=== PATIENT | male | born 1955 | race Caucasian/White ===

== ENCOUNTER 2020-02-05 18:06 | Inpatient (IN) | payer MEDICARE, OTHER ==
[~2020-02-05] VITALS: Ht 185.4 cm; Wt 103.8 kg
--- NOTE | 2020-02-05 18:00 | NUR ---
Patient on the floor. Direct admit from [facility]. No orders yet except that the patient decided to go AMA from [facility]. Dr. Mancera has been paged for new orders, waiting for call back per Charge Nurse-Toney.
[~2020-02-05 18:06] MED LIST: LIDOcaine 2% (20 mg/ml) 5ml cardiac syringe ONE; MAGNESIUM SULFATE 4 MEQ/ML (5gm/10ml) injection ONE; albumin (human) 25% 100 ML IV solution IV ONE; aminocaproic acid 250 MG/1 ML inj. ONE; calcium chloride 100 MG/1 ML inj IV ONE; heparin 1,000 units/ml 10ml inj ONE; heparin 10,000 units/1 ML INJ ONE; methylPREDNISolone sod. succ. 500mg inj ONE; phenylephrine 10mg/ml inj. ONE; potassium Cl 2 mEq/ml inj IV ONE; sodium bicarbonate (8.4%) 1 mEq/ml syringe ONE
[2020-02-05 19:15] VITALS: BP 124/94
--- NOTE | 2020-02-05 19:32 | NUR ---
PAGER ID: [phone] MESSAGE: Candido Pacheco 64 M, Rm 309. Direct admit from [facility]. Arrived at 1800. No orders? Patient is alert, oriented x4. Needs H&P and orders. Herman ACCE [id number]
[2020-02-05] MEDS ORDERED: magnesium hydroxide 30ml (MOM) UD suspension PO PRN (19:55)
[2020-02-05] MEDS ORDERED: potassium Cl 20 mEq SR tablet PO PRN ×2 (19:55)
[2020-02-05] MEDS ORDERED: magnesium 2GM in 50ml NS 50 ML IV PRN (19:55)
[2020-02-05] MEDS ORDERED: mag hydrox/Alum hydrox/simeth 30ml oral suspension PO PRN (19:55)
[2020-02-05] MEDS ORDERED: magnesium Cl slow-release 64mg tablet PO PRN (19:55)
[2020-02-05] MEDS ORDERED: magnesium 4gm in 100ml NS 100 ML IV PRN (19:55)
[2020-02-05] MEDS ORDERED: potassium CL 10mEq/100ml bag 100 ML IV PRN ×2 (19:55)
[2020-02-05] MEDS ORDERED: HYDROcodone/acetaminophen 5mg/325mg tablet PO PRN (19:55)
[2020-02-05] MEDS ORDERED: ondansetron/PF 4mg/2ml inj IV PRN (19:55)
[2020-02-05] MEDS ORDERED: acetaminophen 325mg tablet PO PRN (19:55)
[2020-02-05] MEDS: docusate sod 100mg capsule PO SCH (20:00)
[2020-02-05] MEDS: K and/or MAG REPLACEMENT MC SCH (20:00)
--- NOTE | 2020-02-05 20:09 | NUR ---
Patient has no IV access and refused a New IV insertion at this point. He wants the new IV in the morning when we do the blood draws.
[2020-02-05 22:00] VITALS: BP 139/91
[2020-02-05] MEDS ORDERED: heparin 10,000 units/1 ML INJ IV ONE (22:05)
[2020-02-05 22:24] LABS: BASOPHILS % (AUTO) 0.1 % (0-1); EOSINOPHILS % (AUTO) 0 % (0-6); HEMATOCRIT 47.8 % (42.0-52.0); HEMOGLOBIN 15.8 g/dl (14.0-17.9); LYMPHOCYTES # (AUTO) 0.6 X10'3 (1.1-4.8); MEAN CORPUSCULAR HGB CONC 33.1 g/dL (33.0-36.5); MEAN CORPUSCULAR VOLUME 84.6 FL (78-98); MEAN PLATELET VOLUME 8.5 FL (7.4-10.4); MONOCYTES # (AUTO) 0.6 X10'3 (0-0.9); MONOCYTES % (AUTO) 4.4 % (2-12); NEUTROPHILS # (AUTO) 12.8 X10'3 (1.8-7.7); NEUTROPHILS % (AUTO) 91.5 % (42-75); PLATELET COUNT 238 X10'3 (140-440); RED BLOOD COUNT 5.65 X10'6 (4.70-6.10); RED CELL DISTRIBUTION WIDTH 14.8 % (11.5-14.5)
[2020-02-05 22:33] LABS: PARTIAL THROMBOPLASTIN TIME 28 SECONDS (22-32)
[2020-02-05] MEDS: heparin 25,000 UNIT/250ml bag 250 ML IV SCH (23:01)
[2020-02-06] MEDS ORDERED: METO50TA7 PO (00:19)
[2020-02-06] MEDS ORDERED: LISI10TA4 PO (00:37)
[2020-02-06] MEDS ORDERED: FURO40TA4 PO (00:37)
--- NOTE | 2020-02-06 00:42 | NUR ---
PAGER ID: [phone] MESSAGE: Candido Pacheco 64M Rm 309, direct admit from [facility] for NSTEMI w hx of HTN, COPD, requesting medication for Acid Reflux/GERD. 12 lead EKG confirm that pt. being A Fib. Elizabeth-PAUL [id number]
[2020-02-06] MEDS ORDERED: pantoprazole 40 MG vial IV ONE (00:45)
--- NOTE | 2020-02-06 01:56 | NUR ---
PAGER ID: [phone] MESSAGE: Candido Carlos 64M Rm 309, direct admit from [facility] for NSTEMI w hx of HTN, COPD. His 0hr trop was 0.05, and now- his 3hr troponin is 0.06. Patient is asymptomatic. Next trop at 0404. Herman [id number]
[2020-02-06 02:00] VITALS: BP 137/102
[2020-02-06 04:40] LABS: BASOPHILS % (AUTO) 0.1 % (0-1); EOSINOPHILS % (AUTO) 0 % (0-6); MEAN CORPUSCULAR HEMOGLOBIN 27.6 PG (27.0-31.0); MEAN CORPUSCULAR HGB CONC 32.6 g/dL (33.0-36.5); MEAN CORPUSCULAR VOLUME 84.7 FL (78-98); MEAN PLATELET VOLUME 8.9 FL (7.4-10.4); MONOCYTES # (AUTO) 0.9 X10'3 (0-0.9); MONOCYTES % (AUTO) 6.5 % (2-12); NEUTROPHILS # (AUTO) 11.8 X10'3 (1.8-7.7); NEUTROPHILS % (AUTO) 86.4 % (42-75); PLATELET COUNT 246 X10'3 (140-440); RED BLOOD COUNT 5.79 X10'6 (4.70-6.10); RED CELL DISTRIBUTION WIDTH 14.7 % (11.5-14.5); WHITE BLOOD COUNT 13.7 X10'3 (4.5-11.0)
[2020-02-06 04:55] LABS: ALANINE AMINOTRANSFERASE 29 U/L (12-78); ALBUMIN 3.3 G/DL (3.4-5.0); ALBUMIN/GLOBULIN RATIO 1.1 (1.1-1.5); ALKALINE PHOSPHATASE 41 IU/L (46-116); ANION GAP 6 (8-16); ASPARTATE AMINO TRANSFERASE 10 U/L (10-37); BLOOD UREA NITROGEN 25 MG/DL (7-18); BUN/CREATININE RATIO 22.7 (5.4-32.0); CALCIUM 9.9 MG/DL (8.5-10.1); CHLORIDE 106 MMOL/L (99-107); GLUCOSE 119 MG/DL (70-104); POTASSIUM 4.2 MMOL/L (3.5-5.1); SODIUM 138 MMOL/L (135-145); TOTAL CARBON DIOXIDE 26.1 MMOL/L (24-32); TOTAL PROTEIN 6.3 G/DL (6.4-8.2); eGFR 67 ML/MIN
[2020-02-06 04:58] LABS: MAGNESIUM 2.3 MG/DL (1.5-2.4)
[2020-02-06] MEDS: heparin 10,000 units/1 ML INJ IV PRN ×2 (05:13→17:37)
[2020-02-06] MEDS: heparin 25,000 UNIT/250ml bag 250 ML IV SCH (05:15)
[2020-02-06 06:00] VITALS: BP 133/88
--- NOTE | 2020-02-06 06:26 | NUR ---
Problems reprioritized. Patient report given to Sherman, questions answered & plan of care reviewed with .
--- NOTE | 2020-02-06 06:31 | NUR ---
Patient in room MED 309. I have received report frommark Johnson and had the opportunity to ask questions and assume patient care.
[2020-02-06] MEDS: K and/or MAG REPLACEMENT MC SCH ×2 (08:00→20:00)
[2020-02-06] MEDS: docusate sod 100mg capsule PO SCH ×2 (08:53→20:32)
[2020-02-06 10:00] VITALS: BP 129/96
[2020-02-06] MEDS: furosemide 40mg tablet PO SCH (10:45)
[2020-02-06] MEDS: lisinopril 10 MG tablet PO SCH (10:46)
[2020-02-06] MEDS: calcium carbonate 500mg chew tablet PO PRN (12:44)
[2020-02-06 14:00] VITALS: BP 122/88
[2020-02-06] MEDS ORDERED: vancomycin/NS 1 GM ADD-VANTAGE 250 ML IV ONE (16:30)
[2020-02-06] MEDS ORDERED: potassium Cl 20 mEq SR tablet PO PRN (16:30)
[2020-02-06] MEDS ORDERED: potassium CL 10mEq/100ml bag 100 ML IV PRN (16:30)
[2020-02-06] MEDS ORDERED: magnesium 2GM in 50ml NS 50 ML IV PRN (16:30)
[2020-02-06] MEDS ORDERED: magnesium 4gm in 100ml NS 100 ML IV PRN (16:30)
[2020-02-06] MEDS ORDERED: MESSAGE TO NURSING PO ONE ×3 (16:30→16:41)
[2020-02-06 17:41] LABS: ABG BASE EXCESS 2.5 mmol/L (-2.0-2.0); ABG HCO3 26.4 mmol/L (22.0-26.0); ABG OXYGEN SATURATION 96.1 % (94-97); ABG PCO2 (T) 38.6 mmHg (35.0-48.0); ABG PO2 (T) 78.2 mmHg (75.0-100.0); ALLEN'S TEST POSITIVE; FCOHb 0.3 % (0.0-3.9); FMetHb 0.2 % (0.0-1.5); FO2Hb 95.6 % (94-97); TOTAL HEMOGLOBIN 17.4 G/dl (14.0-18.0)
[2020-02-06 18:00] VITALS: BP 138/99
--- NOTE | 2020-02-06 18:25 | NUR ---
Problems reprioritized. Patient report given, questions answered & plan of care reviewed with mark gonzales.
--- NOTE | 2020-02-06 18:30 | NUR ---
Patient in room MED 309. I have received report from Sherman, and had the opportunity to ask questions and assume patient care.
[2020-02-06] MEDS ORDERED: metoprolol tartrate 12.5mg (1/2 tablet) PO SCH (20:00)
[2020-02-06] MEDS: metoprolol succinate 25mg (24-HOUR) SR. Tablet PO SCH (20:32)
[2020-02-06 22:00] VITALS: BP 135/99
--- NOTE | 2020-02-06 22:16 | NUR ---
The patient's Cardiac PTT at 2216 is 55. Therapeutic level. No change in heparin drip rate, which currently running at 16ml/hr. Will recheck his cardiac PTT at 0416. He asymptomatic, resting comfortably.
[2020-02-07] MEDS ORDERED: MESSAGE TO NURSING PO ONE ×2 (01:30→05:30)
[2020-02-07 02:00] VITALS: BP 128/96
[2020-02-07] MEDS ORDERED: MALTODEXTRIN/FRUCTOSE 0.68 KCAL/ML LIQUID 296ML BOTTLE PO ONE (03:30)
[2020-02-07 05:06] LABS: ALANINE AMINOTRANSFERASE 33 U/L (12-78); ALBUMIN 3.2 G/DL (3.4-5.0); ALBUMIN/GLOBULIN RATIO 1.1 (1.1-1.5); ALKALINE PHOSPHATASE 45 IU/L (46-116); ANION GAP 4 (8-16); ASPARTATE AMINO TRANSFERASE 14 U/L (10-37); BILIRUBIN,TOTAL 1.1 MG/DL (0.1-1.0); BLOOD UREA NITROGEN 22 MG/DL (7-18); CALCIUM 9.9 MG/DL (8.5-10.1); CHLORIDE 105 MMOL/L (99-107); CREATININE 1.05 MG/DL (0.60-1.10); GLUCOSE 112 MG/DL (70-104); MAGNESIUM 2.3 MG/DL (1.5-2.4); POTASSIUM 3.9 MMOL/L (3.5-5.1); SODIUM 138 MMOL/L (135-145); TOTAL CARBON DIOXIDE 28.7 MMOL/L (24-32); TOTAL PROTEIN 6.2 G/DL (6.4-8.2); eGFR 71 ML/MIN
[2020-02-07] MEDS ORDERED: ceFAZolin 1000mg inj ONE (05:17)
[2020-02-07] MEDS ORDERED: VANCOMYCIN 1,500MG inj. 1,500 MG in normal saline 500ml IV soln 500 ML IV ONE (05:30)
[2020-02-07] MEDS ORDERED: ringers solution, lacted 1,000 ML IV ONE (05:30)
[2020-02-07] MEDS: mupirocin 2% nasal ointment 1gm UD NS SCH ×2 (05:30→20:14)
[2020-02-07] MEDS ORDERED: gabapentin 400mg capsule PO ONE (05:30)
[2020-02-07] MEDS ORDERED: cefazolin/dext.iso 2gm/50ml 50 ML IV ONE (05:30)
[2020-02-07 05:35] LABS: BASOPHILS % (AUTO) 0.1 % (0-1); EOSINOPHILS # (AUTO) 0.1 X10'3 (0-0.9); EOSINOPHILS % (AUTO) 0.8 % (0-6); HEMATOCRIT 50.8 % (42.0-52.0); HEMOGLOBIN 16.8 g/dl (14.0-17.9); LYMPHOCYTES # (AUTO) 1.9 X10'3 (1.1-4.8); LYMPHOCYTES % (AUTO) 19.6 % (21-51); MEAN CORPUSCULAR HEMOGLOBIN 27.9 PG (27.0-31.0); MEAN CORPUSCULAR HGB CONC 33.1 g/dL (33.0-36.5); MEAN CORPUSCULAR VOLUME 84.5 FL (78-98); MEAN PLATELET VOLUME 8.6 FL (7.4-10.4); MONOCYTES # (AUTO) 1.1 X10'3 (0-0.9); MONOCYTES % (AUTO) 10.8 % (2-12); NEUTROPHILS # (AUTO) 6.7 X10'3 (1.8-7.7); NEUTROPHILS % (AUTO) 68.7 % (42-75); PLATELET COUNT 241 X10'3 (140-440); RED BLOOD COUNT 6.02 X10'6 (4.70-6.10); RED CELL DISTRIBUTION WIDTH 14.9 % (11.5-14.5); WHITE BLOOD COUNT 9.8 X10'3 (4.5-11.0)
[2020-02-07 06:00] VITALS: BP 135/94
[2020-02-07] MEDS ORDERED: LORazepam 2 mg/ml vial IV ONE (06:00)
[2020-02-07] MEDS ORDERED: famotidine 10mg tablet PO ONE (06:00)
--- NOTE | 2020-02-07 06:32 | NUR ---
Problems reprioritized. Patient report given to Deborah, questions answered & plan of care reviewed with .
--- NOTE | 2020-02-07 06:35 | NUR ---
The cardiac PTT at 0440 came to be 50. Therapeutic level. No rate change. The Heparin was stopped to prepare the patient for CABG. Saw the note that pharmacy has DC the Heparin Drip. Dayshift charge nurse-Rashida-PAUL aware of the changes and they will follow up with the pharmacy. patient is alert, oriented x4. Not on any distress.
[2020-02-07] MEDS: K and/or MAG REPLACEMENT MC SCH ×2 (08:00→20:00)
[2020-02-07 09:27] LABS: CLARITY,URINE CLEAR (Clear); COLOR,URINE YELLOW (Yellow); GLUCOSE, URINE NEGATIVE (Neg); KETONES,URINE NEGATIVE (Neg); LEUKOCYTE ESTERASE ,URINE NEGATIVE (Neg); NITRITES, URINE NEGATIVE (Neg); OCCULT BLOOD,URINE NEGATIVE (Neg); PH,URINE 6.5 (4.8-8.0); PROTEIN,URINE NEGATIVE (Neg)
[2020-02-07 09:28] LABS: UA COLLECTION TYPE CLN CATCH MIDSTREAM
[2020-02-07 10:00] VITALS: BP 142/101
[2020-02-07] MEDS: lisinopril 10 MG tablet PO SCH (10:14)
[2020-02-07] MEDS: docusate sod 100mg capsule PO SCH ×2 (10:14→20:14)
[2020-02-07] MEDS: furosemide 40mg tablet PO SCH (10:14)
[2020-02-07] MEDS ORDERED: iohexol 350MG/ML 100ml bottle IV ONE (10:26)
--- NOTE | 2020-02-07 13:43 | NUR ---
Nutrition consult per pt request as with food sensitivities. RD visited pt at bedside, reports he already discussed his sensitivities with kitchen staff including no pork, no beef, no potatoes. Prefers fish, turkey, sourdough bread. Addendum: 02/07/20 at [address] Amended: Links added.
[2020-02-07 14:00] VITALS: BP 146/94
[2020-02-07 18:00] VITALS: BP 128/95
[2020-02-07] MEDS: metoprolol succinate 25mg (24-HOUR) SR. Tablet PO SCH (20:14)
[2020-02-07 22:00] VITALS: BP 137/92
[2020-02-08] VITALS (18 sets, daily range): BP systolic 105–141; BP diastolic 68–107
[2020-02-08 02:37] LABS: BASOPHILS # (AUTO) 0.1 X10'3 (0-0.2); BASOPHILS % (AUTO) 0.7 % (0-1); EOSINOPHILS # (AUTO) 0.2 X10'3 (0-0.9); EOSINOPHILS % (AUTO) 2.3 % (0-6); HEMATOCRIT 51.4 % (42.0-52.0); HEMOGLOBIN 17.3 g/dl (14.0-17.9); MEAN CORPUSCULAR HEMOGLOBIN 28.3 PG (27.0-31.0); MEAN CORPUSCULAR HGB CONC 33.6 g/dL (33.0-36.5); MEAN CORPUSCULAR VOLUME 84.2 FL (78-98); MEAN PLATELET VOLUME 8.4 FL (7.4-10.4); MONOCYTES % (AUTO) 10.7 % (2-12); NEUTROPHILS # (AUTO) 6.5 X10'3 (1.8-7.7); NEUTROPHILS % (AUTO) 66.3 % (42-75); PLATELET COUNT 241 X10'3 (140-440); RED CELL DISTRIBUTION WIDTH 14.8 % (11.5-14.5); WHITE BLOOD COUNT 9.8 X10'3 (4.5-11.0)
[2020-02-08 02:53] LABS: ALANINE AMINOTRANSFERASE 38 U/L (12-78); ALBUMIN 3.3 G/DL (3.4-5.0); ALBUMIN/GLOBULIN RATIO 1.1 (1.1-1.5); ALKALINE PHOSPHATASE 48 IU/L (46-116); ANION GAP 4 (8-16); ASPARTATE AMINO TRANSFERASE 11 U/L (10-37); BLOOD UREA NITROGEN 20 MG/DL (7-18); BUN/CREATININE RATIO 21.3 (5.4-32.0); CALCIUM 9.7 MG/DL (8.5-10.1); CHLORIDE 105 MMOL/L (99-107); CREATININE 0.94 MG/DL (0.60-1.10); GLUCOSE 116 MG/DL (70-104); MAGNESIUM 2.3 MG/DL (1.5-2.4); POTASSIUM 4.1 MMOL/L (3.5-5.1); SODIUM 136 MMOL/L (135-145); TOTAL CARBON DIOXIDE 27.5 MMOL/L (24-32); TOTAL PROTEIN 6.4 G/DL (6.4-8.2); eGFR 81 ML/MIN
[2020-02-08] MEDS ORDERED: dextrose 50%-water 50ml dispensing syringe IV PRN ×2 (05:00→11:20)
[2020-02-08] MEDS ORDERED: insulin glargine (Lantus) pen - multi-dose SQ PRN ×2 (05:00→11:20)
[2020-02-08] MEDS ORDERED: gabapentin 400mg capsule PO ONE (05:30)
[2020-02-08] MEDS ORDERED: LORazepam 2 mg/ml vial IV ONE (05:30)
[2020-02-08] MEDS ORDERED: MALTODEXTRIN/FRUCTOSE 0.68 KCAL/ML LIQUID 296ML BOTTLE PO ONE (05:30)
[2020-02-08] MEDS ORDERED: famotidine 10mg tablet PO ONE (05:30)
[2020-02-08] MEDS ORDERED: cefazolin/dext.iso 2gm/50ml 50 ML IV ONE (05:30)
[2020-02-08] MEDS ORDERED: VANCOMYCIN 1,500MG inj. 1,500 MG in normal saline 500ml IV soln 500 ML IV ONE (05:30)
--- NOTE | 2020-02-08 06:27 | NUR ---
Problems reprioritized. Patient report given to GaroRN, questions answered & plan of care reviewed with .
[2020-02-08] MEDS ORDERED: sevoflurane 250ml liquid IH ONE (06:51)
[2020-02-08] MEDS ORDERED: amiodarone in dextrose, iso-osm 360mg/200ml bag IV ONE (06:51)
[2020-02-08] MEDS ORDERED: rocuronium 10mg/ml inj IV ONE ×3 (06:51→06:59)
[2020-02-08] MEDS ORDERED: aminocaproic acid 250 MG/1 ML inj. ONE (06:51)
[2020-02-08] MEDS ORDERED: protamine sulf. 10mg/ml inj. IV ONE (06:51)
[2020-02-08] MEDS ORDERED: SUFENTANIL CITRATE 50 MCG/ML 2ml ampule IV ONE (06:52)
[2020-02-08] MEDS ORDERED: MIDAZolam 5mg/ml 2ml vial ONE (06:53)
[2020-02-08] MEDS ORDERED: propofol inj 20 ML IV ONE (06:59)
--- NOTE | 2020-02-08 07:10 | NUR ---
Patient in room MED 309. I have received report from PAUL Johnson and had the opportunity to ask questions and assume patient care.
[2020-02-08] MEDS ORDERED: ceFAZolin 1000mg inj ONE (07:31)
[2020-02-08 07:41] LABS: ABG BASE EXCESS -0.4 mmol/L (-2.0-2.0); ABG HCO3 23.8 mmol/L (22.0-26.0); ABG OXYGEN SATURATION 95.5 % (94-97); ABG PCO2 37.9 mmHg (35.0-48.0); ABG PO2 76.5 mmHg (75.0-100.0); CL (ABG) 101 mmol/L (98-110); FCOHb 1.1 % (0.0-3.9); FMetHb 0.2 % (0.0-1.5); FO2Hb 94.3 % (94-97); GLUCOSE (ABG) 114 mg/dl (70-140); IONIZED CA (ABG) 1.28 mmol/L (1.10-1.43); K (ABG) 3.7 mmol/L (3.5-5.0); TOTAL HEMOGLOBIN 16.1 G/dl (14.0-18.0)
[2020-02-08 08:15] LABS: ABG BASE EXCESS 0.9 mmol/L (-2.0-2.0); ABG HCO3 25.4 mmol/L (22.0-26.0); ABG OXYGEN SATURATION 99.6 % (94-97); ABG PCO2 40.1 mmHg (35.0-48.0); ABG PO2 400.2 mmHg (75.0-100.0); CL (ABG) 99 mmol/L (98-110); FCOHb 0.7 % (0.0-3.9); FMetHb 0.1 % (0.0-1.5); FO2Hb 98.8 % (94-97); GLUCOSE (ABG) 82 mg/dl (70-140); IONIZED CA (ABG) 1.14 mmol/L (1.10-1.43); K (ABG) 3.3 mmol/L (3.5-5.0); TOTAL HEMOGLOBIN 13.3 G/dl (14.0-18.0)
[2020-02-08 08:40] LABS: ABG BASE EXCESS VENOUS -1.4 mmol/L; ABG PCO2 VENOUS 54.7 mmHg; CL (ABG) 100 mmol/L (98-110); FCOHb VENOUS 1.4 %; FHHb VENOUS 7.2 %; FO2Hb VENOUS 91.4 %; GLUCOSE (ABG) 83 mg/dl (70-140); IONIZED CA (ABG) 1.24 mmol/L (1.10-1.43); K (ABG) 4.5 mmol/L (3.5-5.0); TOTAL HEMOGLOBIN 14.5 G/dl (14.0-18.0)
[2020-02-08 09:30] LABS: ABG BASE EXCESS -0.8 mmol/L (-2.0-2.0); ABG HCO3 23.7 mmol/L (22.0-26.0); ABG OXYGEN SATURATION 99.1 % (94-97); ABG PO2 187.6 mmHg (75.0-100.0); CL (ABG) 103 mmol/L (98-110); FCOHb 0.9 % (0.0-3.9); FMetHb 0.3 % (0.0-1.5); FO2Hb 97.9 % (94-97); GLUCOSE (ABG) 107 mg/dl (70-140); IONIZED CA (ABG) 1.14 mmol/L (1.10-1.43); K (ABG) 4.4 mmol/L (3.5-5.0); TOTAL HEMOGLOBIN 13.4 G/dl (14.0-18.0)
[2020-02-08 09:45] LABS: ABG BASE EXCESS 1.7 mmol/L (-2.0-2.0); ABG HCO3 24.9 mmol/L (22.0-26.0); ABG OXYGEN SATURATION 98.1 % (94-97); ABG PCO2 34.3 mmHg (35.0-48.0); ABG PO2 111.6 mmHg (75.0-100.0); CL (ABG) 101 mmol/L (98-110); FCOHb 0.8 % (0.0-3.9); FMetHb 0.2 % (0.0-1.5); FO2Hb 97.1 % (94-97); GLUCOSE (ABG) 100 mg/dl (70-140); IONIZED CA (ABG) 1.41 mmol/L (1.10-1.43); K (ABG) 4.2 mmol/L (3.5-5.0); TOTAL HEMOGLOBIN 12.4 G/dl (14.0-18.0)
[2020-02-08 10:36] LABS: ABG BASE EXCESS VENOUS -2.3 mmol/L; ABG HCO3 VENOUS 22.1 mmol/L; ABG PCO2 VENOUS 36.6 mmHg; ABG PO2 VENOUS 35.3 mmHg; CL (ABG) 100 mmol/L (98-110); FCOHb VENOUS 1.6 %; FHHb VENOUS 30.2 %; FMetHb VENOUS 0.3 %; FO2Hb VENOUS 67.9 %; GLUCOSE (ABG) 115 mg/dl (70-140); IONIZED CA (ABG) 1.29 mmol/L (1.10-1.43); K (ABG) 4.4 mmol/L (3.5-5.0); TOTAL HEMOGLOBIN 13.1 G/dl (14.0-18.0)
[2020-02-08] MEDS ORDERED: niCARDipine-NS 40mg/200ml IVPB 200 ML IV PRN (11:16)
[2020-02-08] MEDS ORDERED: Insulin Reg/NS 100units/100mL 100 ML IV SCH (11:16)
[2020-02-08] MEDS ORDERED: DOPamine 400mg/D5W 250ml 250 ML IV PRN (11:16)
[2020-02-08] MEDS ORDERED: nitroGLYCERIN-Tridil 50MG/D5W 250 ML IV PRN (11:16)
[2020-02-08] MEDS ORDERED: sodium phosphate inj. 30 MMOL in dextrose 5%-water 250 ML IV PRN (11:20)
[2020-02-08] MEDS ORDERED: ondansetron/PF 4mg/2ml inj IV PRN (11:20)
[2020-02-08] MEDS ORDERED: pantoprazole 40 MG vial IV ONE (11:20)
[2020-02-08] MEDS ORDERED: bisacodyl 10mg suppository rectal RC PRN (11:20)
[2020-02-08] MEDS ORDERED: acetaminophen 325mg tablet PO PRN ×2 (11:20)
[2020-02-08] MEDS ORDERED: magnesium 4gm in 100ml NS 100 ML IV PRN (11:20)
[2020-02-08] MEDS ORDERED: normal saline 250ml IV soln 250 ML IV PRN (11:20)
[2020-02-08] MEDS ORDERED: metoclopramide 5 mg/ml inj IV PRN (11:20)
[2020-02-08] MEDS ORDERED: morphine 4 MG/ML inj SYRINge IV PRN (11:20)
[2020-02-08] MEDS ORDERED: sodium phosphate inj. 15 MMOL in dextrose 5%-water 250 ML IV PRN (11:20)
[2020-02-08] MEDS ORDERED: magnesium citrate 296ml oral solution PO PRN (11:20)
[2020-02-08] MEDS ORDERED: Neutra Phos packet PO PRN (11:20)
[2020-02-08] MEDS ORDERED: magnesium hydroxide 30ml (MOM) UD suspension PO PRN (11:20)
[2020-02-08] MEDS ORDERED: albumin (Human) 5% 250ml 250 ML IV PRN (11:20)
[2020-02-08] MEDS ORDERED: mineral oil 133ml enema RC PRN (11:20)
--- NOTE | 2020-02-08 11:30 | NUR ---
Received to room , accompanied by MDs and surgical crew. Placed on ventilator, to monitor technician, arterial line and PA line pressure monitored. Chest tubes to suction at 20 cm. Tong cath to gravity drainage. Dressings are dry and intact. See assessment record. All vasoactive drugs are infusing via central line.
[2020-02-08 11:40] LABS: ABG BASE EXCESS -3.6 mmol/L (-2.0-2.0); ABG HCO3 20.5 mmol/L (22.0-26.0); ABG OXYGEN SATURATION 95.5 % (94-97); ABG PCO2 (T) 35.1 mmHg (35.0-48.0); ABG PO2 (T) 78.9 mmHg (75.0-100.0); FCOHb 0.6 % (0.0-3.9); FMetHb 0.3 % (0.0-1.5); FO2Hb 94.6 % (94-97)
[2020-02-08 11:55] LABS: BASOPHILS % (AUTO) 0.1 % (0-1); EOSINOPHILS # (AUTO) 0.1 X10'3 (0-0.9); EOSINOPHILS % (AUTO) 0.4 % (0-6); HEMATOCRIT 49.1 % (42.0-52.0); HEMOGLOBIN 16.1 g/dl (14.0-17.9); LYMPHOCYTES # (AUTO) 0.8 X10'3 (1.1-4.8); LYMPHOCYTES % (AUTO) 6.7 % (21-51); MEAN CORPUSCULAR HEMOGLOBIN 27.7 PG (27.0-31.0); MEAN CORPUSCULAR HGB CONC 32.8 g/dL (33.0-36.5); MEAN CORPUSCULAR VOLUME 84.3 FL (78-98); MEAN PLATELET VOLUME 8.4 FL (7.4-10.4); MONOCYTES # (AUTO) 0.5 X10'3 (0-0.9); NEUTROPHILS # (AUTO) 11.1 X10'3 (1.8-7.7); NEUTROPHILS % (AUTO) 88.8 % (42-75); PLATELET COUNT 141 X10'3 (140-440); RED BLOOD COUNT 5.82 X10'6 (4.70-6.10); RED CELL DISTRIBUTION WIDTH 14.8 % (11.5-14.5); WHITE BLOOD COUNT 12.5 X10'3 (4.5-11.0)
[2020-02-08 12:09] LABS: PARTIAL THROMBOPLASTIN TIME 29 SECONDS (22-32)
[2020-02-08 12:10] LABS: ALANINE AMINOTRANSFERASE 35 U/L (12-78); ALBUMIN/GLOBULIN RATIO 1.6 (1.1-1.5); ALKALINE PHOSPHATASE 31 IU/L (46-116); ANION GAP 6 (8-16); ASPARTATE AMINO TRANSFERASE 172 U/L (10-37); BILIRUBIN,TOTAL 1.5 MG/DL (0.1-1.0); BLOOD UREA NITROGEN 19 MG/DL (7-18); BUN/CREATININE RATIO 19.6 (5.4-32.0); CALCIUM 8.4 MG/DL (8.5-10.1); CHLORIDE 109 MMOL/L (99-107); CREATININE 0.97 MG/DL (0.60-1.10); GLUCOSE 163 MG/DL (70-104); MAGNESIUM 3.9 MG/DL (1.5-2.4); PHOSPHORUS 2.5 MG/DL (2.3-4.5); SODIUM 140 MMOL/L (135-145); TOTAL CARBON DIOXIDE 25.2 MMOL/L (24-32); TOTAL PROTEIN 4.9 G/DL (6.4-8.2); eGFR 78 ML/MIN
[2020-02-08 12:16] LABS: ACTIVATED CLOTTING TIME 127 SEC (101-148)
[2020-02-08] MEDS: Insulin Reg/NS 100units/100mL 100 ML IV SCH (12:17)
[2020-02-08] MEDS: gabapentin 300mg capsule PO SCH ×2 (12:45→20:33)
[2020-02-08] MEDS: sodium chloride 0.45% 1,000 ML IV SCH (12:48)
[2020-02-08] MEDS: potassium Cl 20mEq/100mL bag 100 ML IV PRN ×2 (12:51→14:04)
--- NOTE | 2020-02-08 13:28 | NUR ---
Nutrition consult: Pt s/p MVR and MAZE procedure today. Pt would benefit from nutrition therapy education s/p cardiac surgery once stable. Will continue to follow. Addendum: 02/08/20 at [address] Amended: Links added.
[2020-02-08] MEDS: morphine 4 MG/ML inj SYRINge IV PRN (15:02)
--- NOTE | 2020-02-08 15:30 | NUR ---
Art line came out. notified
[2020-02-08] MEDS: amiodarone/D5 360MG/200ML BAG 200 ML IV SCH ×2 (15:41→21:29)
[2020-02-08 16:10] LABS: ABG BASE EXCESS -4.2 mmol/L (-2.0-2.0); ABG HCO3 20.4 mmol/L (22.0-26.0); ABG PCO2 (T) 36.4 mmHg (35.0-48.0); ABG PO2 (T) 90.2 mmHg (75.0-100.0); ALLEN'S TEST POSITIVE; FCOHb 0.3 % (0.0-3.9); FMetHb 0.3 % (0.0-1.5); FO2Hb 95.9 % (94-97); PEEP 5 cm H2O; TOTAL HEMOGLOBIN 16.5 G/dl (14.0-18.0)
[2020-02-08 16:11] LABS: ABG OXYGEN SATURATION 96.5 % (94-97)
--- NOTE | 2020-02-08 16:20 | NUR ---
Patient extubated to 2L NC. tolerated well. Snoring and seems to have sleep apnea; sats will dip and pop right back up after a deep breath
[2020-02-08] MEDS: ceFAZolin 1GM/D5W- ADD-VANTAGE 50 ML IV SCH (17:02)
[2020-02-08 17:23] LABS: BASOPHILS % (AUTO) 0.3 % (0-1); EOSINOPHILS % (AUTO) 0 % (0-6); HEMATOCRIT 47.9 % (42.0-52.0); HEMOGLOBIN 15.6 g/dl (14.0-17.9); LYMPHOCYTES # (AUTO) 0.5 X10'3 (1.1-4.8); LYMPHOCYTES % (AUTO) 3.5 % (21-51); MEAN CORPUSCULAR HEMOGLOBIN 27.7 PG (27.0-31.0); MEAN CORPUSCULAR HGB CONC 32.6 g/dL (33.0-36.5); MEAN CORPUSCULAR VOLUME 84.9 FL (78-98); MEAN PLATELET VOLUME 8.3 FL (7.4-10.4); MONOCYTES # (AUTO) 0.3 X10'3 (0-0.9); MONOCYTES % (AUTO) 2.4 % (2-12); NEUTROPHILS # (AUTO) 12.9 X10'3 (1.8-7.7); NEUTROPHILS % (AUTO) 93.8 % (42-75); PLATELET COUNT 159 X10'3 (140-440); RED BLOOD COUNT 5.64 X10'6 (4.70-6.10); RED CELL DISTRIBUTION WIDTH 14.8 % (11.5-14.5); WHITE BLOOD COUNT 13.8 X10'3 (4.5-11.0)
[2020-02-08 17:37] LABS: ALBUMIN 3.5 G/DL (3.4-5.0); ANION GAP 3 (8-16); BLOOD UREA NITROGEN 20 MG/DL (7-18); BUN/CREATININE RATIO 16.7 (5.4-32.0); CALCIUM 8.6 MG/DL (8.5-10.1); CHLORIDE 110 MMOL/L (99-107); GLUCOSE 154 MG/DL (70-104); MAGNESIUM 3.2 MG/DL (1.5-2.4); PHOSPHORUS 4.1 MG/DL (2.3-4.5); SODIUM 140 MMOL/L (135-145); TOTAL CARBON DIOXIDE 26.8 MMOL/L (24-32); eGFR 61 ML/MIN
[2020-02-08] MEDS: sennosides/docusate sodium tablet PO SCH (20:32)
[2020-02-08] MEDS: mupirocin 2% nasal ointment 1gm UD NS SCH (20:32)
[2020-02-08] MEDS: vancomycin/NS 1 GM ADD-VANTAGE 250 ML IV SCH (20:33)
[2020-02-08] MEDS: HYDROcodone/acetaminophen 10/325mg tab PO PRN (20:48)
[2020-02-09] VITALS (23 sets, daily range): BP systolic 108–169; BP diastolic 67–100
[2020-02-09] MEDS: ceFAZolin 1GM/D5W- ADD-VANTAGE 50 ML IV SCH ×3 (00:16→17:37)
[2020-02-09 02:20] LABS: BASOPHILS # (AUTO) 0.1 X10'3 (0-0.2); BASOPHILS % (AUTO) 0.4 % (0-1); EOSINOPHILS % (AUTO) 0 % (0-6); HEMOGLOBIN 14.7 g/dl (14.0-17.9); LYMPHOCYTES # (AUTO) 0.6 X10'3 (1.1-4.8); MEAN CORPUSCULAR HEMOGLOBIN 27.4 PG (27.0-31.0); MEAN CORPUSCULAR HGB CONC 32.6 g/dL (33.0-36.5); MEAN CORPUSCULAR VOLUME 84.2 FL (78-98); MEAN PLATELET VOLUME 8.7 FL (7.4-10.4); MONOCYTES # (AUTO) 0.6 X10'3 (0-0.9); MONOCYTES % (AUTO) 4.3 % (2-12); NEUTROPHILS # (AUTO) 12.8 X10'3 (1.8-7.7); NEUTROPHILS % (AUTO) 91.3 % (42-75); PLATELET COUNT 138 X10'3 (140-440); RED BLOOD COUNT 5.35 X10'6 (4.70-6.10); RED CELL DISTRIBUTION WIDTH 14.8 % (11.5-14.5)
[2020-02-09] MEDS: amiodarone/D5 360MG/200ML BAG 200 ML IV SCH (02:26)
[2020-02-09 02:27] LABS: PARTIAL THROMBOPLASTIN TIME 25 SECONDS (22-32)
[2020-02-09 02:30] LABS: ALANINE AMINOTRANSFERASE 36 U/L (12-78); ALBUMIN 3.2 G/DL (3.4-5.0); ALBUMIN/GLOBULIN RATIO 1.5 (1.1-1.5); ALKALINE PHOSPHATASE 29 IU/L (46-116); ANION GAP 6 (8-16); ASPARTATE AMINO TRANSFERASE 151 U/L (10-37); BILIRUBIN,TOTAL 0.9 MG/DL (0.1-1.0); BLOOD UREA NITROGEN 21 MG/DL (7-18); BUN/CREATININE RATIO 19.3 (5.4-32.0); CALCIUM 8.8 MG/DL (8.5-10.1); CHLORIDE 106 MMOL/L (99-107); CREATININE 1.09 MG/DL (0.60-1.10); GLUCOSE 120 MG/DL (70-104); MAGNESIUM 2.8 MG/DL (1.5-2.4); PHOSPHORUS 4.2 MG/DL (2.3-4.5); POTASSIUM 4.7 MMOL/L (3.5-5.1); SODIUM 139 MMOL/L (135-145); TOTAL CARBON DIOXIDE 27.3 MMOL/L (24-32); TOTAL PROTEIN 5.4 G/DL (6.4-8.2); eGFR 68 ML/MIN
[2020-02-09] MEDS: furosemide 40mg/4ml inj IV SCH ×2 (07:52→19:32)
[2020-02-09] MEDS: gabapentin 300mg capsule PO SCH ×3 (07:53→20:05)
[2020-02-09] MEDS: aspirin 325mg tablet, delayed-release (Ecotrin) PO SCH (07:54)
[2020-02-09] MEDS: sennosides/docusate sodium tablet PO SCH ×2 (07:54→19:35)
[2020-02-09] MEDS: atorvastatin 10mg tablet PO SCH (07:54)
[2020-02-09] MEDS: metoprolol tartrate 12.5mg (1/2 tablet) PO SCH ×2 (07:54→19:35)
[2020-02-09] MEDS: amiodarone 200mg tablet PO SCH ×2 (07:54→19:34)
[2020-02-09] MEDS: mupirocin 2% nasal ointment 1gm UD NS SCH ×2 (07:55→19:33)
[2020-02-09] MEDS: vancomycin/NS 1 GM ADD-VANTAGE 250 ML IV SCH ×2 (09:10→19:33)
[2020-02-09] MEDS ORDERED: ondansetron 4mg rapidly disintigrating tab PO PRN (11:40)
[2020-02-09] MEDS: Insulin Reg/NS 100units/100mL 100 ML IV SCH (14:24)
[2020-02-09] MEDS ORDERED: dextrose 50%-water 50ml dispensing syringe IV PRN ×2 (15:05)
[2020-02-09] MEDS ORDERED: glucagon, human recombinant 1mg kit SUBCUT PRN (15:05)
[2020-02-09] MEDS ORDERED: MESSAGE TO PHARMACY PO ONE (15:05)
[2020-02-09] MEDS ORDERED: dextrose ORAL solution 15 GM/59 ML bottle PO PRN ×2 (15:05)
[2020-02-09] MEDS: insulin Lispro (HumaLOG) vial - multi-dose SQ SCH ×2 (15:29→19:54)
--- NOTE | 2020-02-09 15:44 | NUR ---
Initial: Pt s/p MVR and MAZE POD #1 seen at bedside for written and verbal heart healthy and s/p cardiac surgery nutrition therapy education. Pt currently on a heart healthy diet documented with 75-100% PO intake meeting nutrient needs. Further food preferences were obtained and d/w dietary, see below. LB 02/06. Pt provided with RD contact information. Will continue to follow. Recommendations: 1) Continue heart healthy diet 2) [place] food preferences: dislikes beef, pork, potatoes, wheat/white breads, tomatoes, and milk to drink; likes: turkey, chicken, fish, all veggies, and sourdough bread, almond milk 3) Routine bowel care 4) Scaled weights per rx Addendum: 02/09/20 at [address] Amended: Links added.
[2020-02-09] MEDS: HYDROcodone/acetaminophen 10/325mg tab PO PRN (18:12)
--- NOTE | 2020-02-09 18:25 | NUR ---
Patient in room CICU 2007. I have received report from Raman RN and Mariza RN and had the opportunity to ask questions and assume patient care. Patient is awake and alert in bed. Per report and patient he was just put back to bed after being up to chair for several hours. Patient states "I am tired". Patient does not want to be up to chair for dinner. Plan of care discussed with patient for night clerk. Will continue to monitor.
--- NOTE | 2020-02-09 20:53 | NUR ---
Dr. Pollard called for BP 166/96 after PO medications. New order for Lisinopril 10mg q HS. Address patients referred pain to left shoulder 04/11 [place] not working. Per Dr. Pollard most likely the chest tubes no new orders at this time continue pain management at ordered.
[2020-02-09] MEDS: morphine 4 MG/ML inj SYRINge IV PRN (21:16)
[2020-02-09] MEDS: lisinopril 10 MG tablet PO SCH (21:27)
--- NOTE | 2020-02-09 23:00 | NUR ---
Patient appears to be sleeping. Will continue to monitor.
[2020-02-10] VITALS (24 sets, daily range): BP systolic 109–143; BP diastolic 67–89
[2020-02-10] MEDS: ceFAZolin 1GM/D5W- ADD-VANTAGE 50 ML IV SCH (00:45)
[2020-02-10] MEDS: HYDROcodone/acetaminophen 10/325mg tab PO PRN ×2 (00:55→14:07)
--- NOTE | 2020-02-10 00:55 | NUR ---
Patient with compliant of pain to left shoulder 7/10 intermittent with breathing. Patient administered [place] for pain as ordered. Provided patient with ear plugs and door partially closed. Patient repositioned. Will continue to monitor.
--- NOTE | 2020-02-10 02:00 | NUR ---
Patient appears to be sleeping soundly.
[2020-02-10 02:59] LABS: BASOPHILS # (AUTO) 0.1 X10'3 (0-0.2); BASOPHILS % (AUTO) 0.4 % (0-1); EOSINOPHILS % (AUTO) 0 % (0-6); HEMATOCRIT 40.2 % (42.0-52.0); LYMPHOCYTES # (AUTO) 0.8 X10'3 (1.1-4.8); LYMPHOCYTES % (AUTO) 4.5 % (21-51); MEAN CORPUSCULAR HEMOGLOBIN 27.3 PG (27.0-31.0); MEAN CORPUSCULAR HGB CONC 32.4 g/dL (33.0-36.5); MEAN CORPUSCULAR VOLUME 84.2 FL (78-98); MEAN PLATELET VOLUME 8.6 FL (7.4-10.4); MONOCYTES # (AUTO) 1.4 X10'3 (0-0.9); MONOCYTES % (AUTO) 8.1 % (2-12); PLATELET COUNT 141 X10'3 (140-440); RED BLOOD COUNT 4.77 X10'6 (4.70-6.10); RED CELL DISTRIBUTION WIDTH 14.8 % (11.5-14.5); WHITE BLOOD COUNT 17.2 X10'3 (4.5-11.0)
--- NOTE | 2020-02-10 03:00 | NUR ---
Patient with wallet at bedside with credit cards and etienne in wallet. ER Admission called to send items to safe. They will be up after shift change secondary to only one on staff.
[2020-02-10 03:16] LABS: ANION GAP 1 (8-16); BLOOD UREA NITROGEN 30 MG/DL (7-18); CALCIUM 9.2 MG/DL (8.5-10.1); CHLORIDE 101 MMOL/L (99-107); CREATININE 1.07 MG/DL (0.60-1.10); GLUCOSE 120 MG/DL (70-104); MAGNESIUM 2.2 MG/DL (1.5-2.4); PHOSPHORUS 3.4 MG/DL (2.3-4.5); POTASSIUM 4.3 MMOL/L (3.5-5.1); SODIUM 134 MMOL/L (135-145); TOTAL CARBON DIOXIDE 31.9 MMOL/L (24-32); eGFR 69 ML/MIN
[2020-02-10] MEDS: magnesium 2GM in 50ml NS 50 ML IV PRN (03:37)
[2020-02-10] MEDS: potassium Cl 20 mEq SR tablet PO PRN (05:08)
--- NOTE | 2020-02-10 06:24 | NUR ---
Problems reprioritized. Patient report given, questions answered & plan of care reviewed with PAUL Tse.
--- NOTE | 2020-02-10 06:25 | NUR ---
Patient in room CICU 2007. I have received report from Bella MILLER and had the opportunity to ask questions and assume patient care.
[2020-02-10] MEDS: sennosides/docusate sodium tablet PO SCH ×2 (07:47→20:48)
[2020-02-10] MEDS: pantoprazole 40mg Tablet.DR PO SCH (07:48)
[2020-02-10] MEDS: aspirin 325mg tablet, delayed-release (Ecotrin) PO SCH (07:48)
[2020-02-10] MEDS: atorvastatin 10mg tablet PO SCH (07:48)
[2020-02-10] MEDS: gabapentin 300mg capsule PO SCH (07:48)
[2020-02-10] MEDS: spironolactone 25 MG tablet PO SCH (07:49)
[2020-02-10] MEDS: furosemide 40mg/4ml inj IV SCH ×2 (07:49→20:47)
[2020-02-10] MEDS: amiodarone 200mg tablet PO SCH ×2 (07:49→20:47)
[2020-02-10] MEDS: mupirocin 2% nasal ointment 1gm UD NS SCH (07:49)
[2020-02-10] MEDS: metoprolol tartrate 12.5mg (1/2 tablet) PO SCH ×2 (07:57→20:00)
[2020-02-10] MEDS: insulin Lispro (HumaLOG) vial - multi-dose SQ SCH ×3 (08:45→19:27)
[2020-02-10] MEDS: sodium chloride 0.45% 1,000 ML IV SCH ×2 (11:16→22:47)
[2020-02-10] MEDS: insulin glargine (Lantus) pen - multi-dose SQ SCH (14:56)
[2020-02-10] MEDS ORDERED: insulin glargine (Lantus) pen - multi-dose SQ SCH (15:00)
--- NOTE | 2020-02-10 18:07 | NUR ---
Patient in room CICU 2007. I have received report from PAUL Tse and had the opportunity to ask questions and assume patient care.
--- NOTE | 2020-02-10 18:23 | NUR ---
Patient report given, questions answered & plan of care reviewed with Bella MILLER.
--- NOTE | 2020-02-10 19:00 | NUR ---
Valuables sent to safe. Patients wallet containing multiple credit cards, $30.00 etienne, and his wedding ring send to safe. Inventoried by admitting.
--- NOTE | 2020-02-10 21:00 | NUR ---
[id number]: Patient up for a walk around unit. Patient walked 2 laps around CICU, with stand by assistance. Sternal precautions maintained. Transport monitor in place. Chest tube remained to suction. Tolerated well. Patient to bedside commode after walk. Patient relates he passed a lot of gas. Back to bed with assistance. Patient demonstrated and used good sternal precautions throughout movements. Assisted patient with night time hygiene. Patient relates that he is tired and ready for bed. Ear plugs provided. Call light in reach. Patient would like to wait until morning to take magnesium citrate, stating "I would like to sleep tonight."
[2020-02-10] MEDS: lisinopril 10 MG tablet PO SCH (22:11)
[2020-02-11] VITALS (15 sets, daily range): BP systolic 101–130; BP diastolic 62–87
--- NOTE | 2020-02-11 | NUR ---
Patient appears to be sleeping, ear plugs in place. No distress noted.
--- NOTE | 2020-02-11 03:14 | NUR ---
Patient awake in bed, eating jello and watching TV. No distress noted, no complaints at this time.
[2020-02-11 03:44] LABS: BASOPHILS % (AUTO) 0.2 % (0-1); EOSINOPHILS % (AUTO) 0.2 % (0-6); HEMOGLOBIN 12.5 g/dl (14.0-17.9); LYMPHOCYTES # (AUTO) 1.3 X10'3 (1.1-4.8); LYMPHOCYTES % (AUTO) 10.4 % (21-51); MEAN CORPUSCULAR HEMOGLOBIN 27.8 PG (27.0-31.0); MEAN CORPUSCULAR VOLUME 84.3 FL (78-98); MEAN PLATELET VOLUME 8.6 FL (7.4-10.4); MONOCYTES # (AUTO) 1.6 X10'3 (0-0.9); MONOCYTES % (AUTO) 12.3 % (2-12); NEUTROPHILS # (AUTO) 9.9 X10'3 (1.8-7.7); NEUTROPHILS % (AUTO) 76.9 % (42-75); PLATELET COUNT 144 X10'3 (140-440); RED BLOOD COUNT 4.51 X10'6 (4.70-6.10); RED CELL DISTRIBUTION WIDTH 14.6 % (11.5-14.5); WHITE BLOOD COUNT 12.9 X10'3 (4.5-11.0)
[2020-02-11 04:02] LABS: ALBUMIN 2.8 G/DL (3.4-5.0); ANION GAP 2 (8-16); BLOOD UREA NITROGEN 24 MG/DL (7-18); BUN/CREATININE RATIO 31.2 (5.4-32.0); CHLORIDE 100 MMOL/L (99-107); CREATININE 0.77 MG/DL (0.60-1.10); GLUCOSE 95 MG/DL (70-104); MAGNESIUM 2.4 MG/DL (1.5-2.4); SODIUM 135 MMOL/L (135-145); TOTAL CARBON DIOXIDE 33.3 MMOL/L (24-32); eGFR > 90 ML/MIN
[2020-02-11] MEDS: magnesium 2GM in 50ml NS 50 ML IV PRN (04:55)
[2020-02-11] MEDS: potassium Cl 20 mEq SR tablet PO PRN ×2 (05:08→05:31)
--- NOTE | 2020-02-11 06:37 | NUR ---
Problems reprioritized. Patient report given, questions answered & plan of care reviewed with PAUL Cosme.
[2020-02-11] MEDS: HYDROcodone/acetaminophen 10/325mg tab PO PRN ×4 (06:42→23:01)
[2020-02-11] MEDS: pantoprazole 40mg Tablet.DR PO SCH ×2 (06:42→21:03)
[2020-02-11] MEDS: aspirin 325mg tablet, delayed-release (Ecotrin) PO SCH (07:25)
[2020-02-11] MEDS: furosemide 40mg/4ml inj IV SCH (07:25)
[2020-02-11] MEDS: metoprolol tartrate 12.5mg (1/2 tablet) PO SCH ×2 (07:25→21:14)
[2020-02-11] MEDS: amiodarone 200mg tablet PO SCH ×2 (07:25→21:04)
[2020-02-11] MEDS: atorvastatin 10mg tablet PO SCH (07:25)
[2020-02-11] MEDS: sennosides/docusate sodium tablet PO SCH ×2 (07:25→21:03)
[2020-02-11] MEDS: spironolactone 25 MG tablet PO SCH (07:28)
--- NOTE | 2020-02-11 08:29 | NUR ---
Ivon BARGER in to see. pt. Will check with Dr. Latrice shetty pulling CTs.
[2020-02-11] MEDS ORDERED: midazolam 2 mg/2 ml injection ONE (08:59)
--- NOTE | 2020-02-11 09:23 | NUR ---
Chest tubes pulled by Ivon BARGER. Dr. Pollard was going to cardiovert pt. but pt. ate breakfast. Pt. will be NPO after MN.
[2020-02-11] MEDS ORDERED: potassium Cl 20 mEq SR tablet PO PRN (09:50)
[2020-02-11] MEDS ORDERED: potassium Cl 20mEq/100mL bag 100 ML IV PRN (09:50)
[2020-02-11] MEDS ORDERED: magnesium 4gm in 100ml NS 100 ML IV PRN (09:50)
[2020-02-11] MEDS ORDERED: magnesium 2GM in 50ml NS 50 ML IV PRN (09:50)
--- NOTE | 2020-02-11 10:44 | NUR ---
Patient in room CICU 2007. I have received report from PAUL Cosme and had the opportunity to ask questions and assume patient care.
--- NOTE | 2020-02-11 10:53 | NUR ---
Cardiac surgery consult: Pt has been seen by JAVIER post-op for ed; see prior JAVIER note. Addendum: 02/11/20 at [address] Amended: Links added.
--- NOTE | 2020-02-11 11:00 | NUR ---
received pt into room 309,oriented to surroundings, assess ment complete,agree with prevoius it intern ,no changes,will continue to moniter closely
--- NOTE | 2020-02-11 11:03 | NUR ---
Pt. transferred to ACCE via w/c in stable condition.
[2020-02-11] MEDS: insulin glargine (Lantus) pen - multi-dose SQ SCH (15:00)
--- NOTE | 2020-02-11 18:25 | NUR ---
Patient in room MED 309. I have received report from ROSAURA MILLER and had the opportunity to ask questions and assume patient care.
[2020-02-11] MEDS: calcium carbonate 500mg chew tablet PO PRN (19:43)
[2020-02-11] MEDS: magnesium Cl slow-release 64mg tablet PO SCH (20:00)
--- NOTE | 2020-02-11 20:35 | NUR ---
PT COMPLAINING OF HEARTBURN, GAVE TUMS, STILL COMPLAINING OF HEARTBURN. DOROTHY TAYLOR GAVE ORDERS TO REPEAT DOSE OF TUMS, OR GIVE DOSE OF PROTONIX NOW.
[2020-02-11] MEDS: potassium Cl 20 mEq SR tablet PO SCH (21:03)
[2020-02-11] MEDS: furosemide 40mg tablet PO SCH (21:04)
[2020-02-11] MEDS: lisinopril 10 MG tablet PO SCH (21:06)
[2020-02-12 02:00] VITALS: BP 125/85
[2020-02-12] MEDS: HYDROcodone/acetaminophen 10/325mg tab PO PRN (03:04)
[2020-02-12 05:11] LABS: BASOPHILS % (AUTO) 0.1 % (0-1); EOSINOPHILS # (AUTO) 0.2 X10'3 (0-0.9); EOSINOPHILS % (AUTO) 1.4 % (0-6); HEMATOCRIT 39.6 % (42.0-52.0); HEMOGLOBIN 12.9 g/dl (14.0-17.9); LYMPHOCYTES # (AUTO) 1.2 X10'3 (1.1-4.8); MEAN CORPUSCULAR HEMOGLOBIN 27.6 PG (27.0-31.0); MEAN CORPUSCULAR HGB CONC 32.7 g/dL (33.0-36.5); MEAN CORPUSCULAR VOLUME 84.5 FL (78-98); MEAN PLATELET VOLUME 8.3 FL (7.4-10.4); MONOCYTES # (AUTO) 1.5 X10'3 (0-0.9); MONOCYTES % (AUTO) 11.2 % (2-12); NEUTROPHILS # (AUTO) 10.3 X10'3 (1.8-7.7); NEUTROPHILS % (AUTO) 78.3 % (42-75); PLATELET COUNT 186 X10'3 (140-440); RED BLOOD COUNT 4.68 X10'6 (4.70-6.10); RED CELL DISTRIBUTION WIDTH 14.6 % (11.5-14.5); WHITE BLOOD COUNT 13.2 X10'3 (4.5-11.0)
[2020-02-12 05:20] LABS: ALBUMIN 2.9 G/DL (3.4-5.0); ANION GAP 2 (8-16); BLOOD UREA NITROGEN 17 MG/DL (7-18); BUN/CREATININE RATIO 19.5 (5.4-32.0); CALCIUM 9.5 MG/DL (8.5-10.1); CHLORIDE 99 MMOL/L (99-107); CREATININE 0.87 MG/DL (0.60-1.10); GLUCOSE 114 MG/DL (70-104); POTASSIUM 4.1 MMOL/L (3.5-5.1); SODIUM 133 MMOL/L (135-145); TOTAL CARBON DIOXIDE 32.2 MMOL/L (24-32); eGFR 88 ML/MIN
[2020-02-12 06:00] VITALS: BP 109/80
--- NOTE | 2020-02-12 06:39 | NUR ---
Problems reprioritized. Patient report given, questions answered & plan of care reviewed with ROSAURA MILLER.
[2020-02-12] MEDS ORDERED: morphine 10mg/ml inj. IV ONE (07:00)
[2020-02-12] MEDS ORDERED: MIDAZolam 5mg/ml 2ml vial IV ONE (07:00)
--- NOTE | 2020-02-12 07:02 | NUR ---
Patient in room MED 309. I have received report from mark Guzman and had the opportunity to ask questions and assume patient care.
[2020-02-12] MEDS: amiodarone 200mg tablet PO SCH ×2 (07:47→21:23)
[2020-02-12] MEDS: aspirin 325mg tablet, delayed-release (Ecotrin) PO SCH (07:49)
[2020-02-12] MEDS: furosemide 40mg tablet PO SCH ×2 (07:49→21:24)
[2020-02-12] MEDS: spironolactone 25 MG tablet PO SCH (07:49)
[2020-02-12] MEDS: sennosides/docusate sodium tablet PO SCH ×2 (07:49→20:00)
[2020-02-12] MEDS: magnesium Cl slow-release 64mg tablet PO SCH ×2 (07:49→21:23)
[2020-02-12] MEDS: metoprolol tartrate 12.5mg (1/2 tablet) PO SCH ×2 (07:49→21:24)
[2020-02-12] MEDS: atorvastatin 10mg tablet PO SCH (07:49)
[2020-02-12] MEDS: potassium Cl 20 mEq SR tablet PO SCH ×2 (07:50→21:23)
[2020-02-12] MEDS ORDERED: ASPI-845 PO (09:01)
[2020-02-12] MEDS ORDERED: SPIR25TA PO (09:01)
[2020-02-12] MEDS ORDERED: HYDR-4353 PO (09:01)
[2020-02-12] MEDS ORDERED: METO25TA6 PO (09:01)
[2020-02-12] MEDS ORDERED: AMIO200T61 PO (09:01)
[2020-02-12 10:00] VITALS: BP 114/74
[2020-02-12 14:00] VITALS: BP 120/82
[2020-02-12] MEDS: insulin glargine (Lantus) pen - multi-dose SQ SCH (15:00)
[2020-02-12 18:00] VITALS: BP 117/81
--- NOTE | 2020-02-12 18:10 | NUR ---
Patient in room MED 309. I have received report from ROSAURA MILLER and had the opportunity to ask questions and assume patient care.
[2020-02-12] MEDS: lisinopril 10 MG tablet PO SCH (21:23)
[2020-02-12 22:00] VITALS: BP 127/83
[2020-02-13 02:00] VITALS: BP 120/77
[2020-02-13 06:00] VITALS: BP 118/79
[2020-02-13 06:03] LABS: BASOPHILS % (AUTO) 0.2 % (0-1); EOSINOPHILS # (AUTO) 0.3 X10'3 (0-0.9); EOSINOPHILS % (AUTO) 2.1 % (0-6); HEMATOCRIT 39.6 % (42.0-52.0); LYMPHOCYTES # (AUTO) 1.4 X10'3 (1.1-4.8); LYMPHOCYTES % (AUTO) 10.5 % (21-51); MEAN CORPUSCULAR HEMOGLOBIN 27.7 PG (27.0-31.0); MEAN CORPUSCULAR VOLUME 84.2 FL (78-98); MEAN PLATELET VOLUME 8.1 FL (7.4-10.4); MONOCYTES # (AUTO) 1.2 X10'3 (0-0.9); NEUTROPHILS # (AUTO) 10.5 X10'3 (1.8-7.7); NEUTROPHILS % (AUTO) 78.2 % (42-75); PLATELET COUNT 246 X10'3 (140-440); RED CELL DISTRIBUTION WIDTH 14.8 % (11.5-14.5); WHITE BLOOD COUNT 13.4 X10'3 (4.5-11.0)
--- NOTE | 2020-02-13 06:05 | NUR ---
Patient in room MED 309. I have received report from PAUL Guzman and had the opportunity to ask questions and assume patient care.
[2020-02-13 06:09] LABS: ALBUMIN 2.8 G/DL (3.4-5.0); ANION GAP 5 (8-16); BLOOD UREA NITROGEN 18 MG/DL (7-18); BUN/CREATININE RATIO 23.1 (5.4-32.0); CALCIUM 9.8 MG/DL (8.5-10.1); CHLORIDE 98 MMOL/L (99-107); CREATININE 0.78 MG/DL (0.60-1.10); GLUCOSE 97 MG/DL (70-104); MAGNESIUM 2.1 MG/DL (1.5-2.4); POTASSIUM 4.2 MMOL/L (3.5-5.1); SODIUM 132 MMOL/L (135-145); TOTAL CARBON DIOXIDE 28.9 MMOL/L (24-32); eGFR > 90 ML/MIN
--- NOTE | 2020-02-13 06:19 | NUR ---
Problems reprioritized. Patient report given, questions answered & plan of care reviewed with Rene MILLER.
[2020-02-13] MEDS: potassium Cl 20 mEq SR tablet PO SCH (09:00)
[2020-02-13] MEDS: magnesium Cl slow-release 64mg tablet PO SCH (09:00)
[2020-02-13] MEDS: atorvastatin 10mg tablet PO SCH (09:00)
[2020-02-13] MEDS: potassium Cl 20 mEq SR tablet PO PRN (09:01)
[2020-02-13] MEDS: sennosides/docusate sodium tablet PO SCH (09:01)
[2020-02-13] MEDS: pantoprazole 40mg Tablet.DR PO SCH (09:01)
[2020-02-13] MEDS: aspirin 325mg tablet, delayed-release (Ecotrin) PO SCH (09:01)
[2020-02-13] MEDS: amiodarone 200mg tablet PO SCH (09:01)
[2020-02-13] MEDS: furosemide 40mg tablet PO SCH (09:01)
[2020-02-13] MEDS: spironolactone 25 MG tablet PO SCH (09:01)
[2020-02-13] MEDS: metoprolol tartrate 12.5mg (1/2 tablet) PO SCH (09:08)
[2020-02-13 10:00] VITALS: BP 102/74
--- NOTE | 2020-02-13 11:11 | NUR ---
PATIENT STABLE FOR DISCHARGE PER MD ORDERS. ALL DISCHARGE INSTRUCTIONS REVIEWED, EDUCATION PROVIDED ON POST-OP MVR CARE, MEDICATION REGIMEN, RESPIRATORY TEACHING, CARDIAC REHAB, DIET, FOLLOW UP ETC. PATIENT VERBALIZED UNDERSTANDING. PIV DISCONTINUED, CANNULA INTACT, CLEAN DRY DRESSING IN PLACE. PRODUCT DEVELOPMENT ACTUARY DISCONTINUED. ALL PERSONAL BELONGINGS COLLECTED AND SENT WITH PATIENT, INCLUDING ITEMS FROM [facility]. PACER WIRES CUT. PRESCRIPTIONS TRANSMITTED SUCCESSFULLY TO [facility]. WHEELED TO PRIVATE VEHICLE BY RN AT 1115, TO BE TRANSPORTED HOME BY FAMILY.
== END 2020-02-13 11:11 | disposition home or self-care (01) | DRG 219 ==
LOC: UNDOADMIN 18:11 → MED 3N 18:11 → CICU 2S 02-08 08:41 → MED 3N 02-11 10:53
PROVIDERS: ADMIT Family Medicine; ATTEND Thoracic Surgery (Cardiothoracic Vascular Surgery)
PROC: B32T1ZZ Computerized Tomography (CT Scan) of Left Pulmonary Artery using Low Osmolar Contrast (ICD-10-PCS; 2020-02-07)
PROC: B3201ZZ Computerized Tomography (CT Scan) of Thoracic Aorta using Low Osmolar Contrast (ICD-10-PCS; 2020-02-07)
PROC: B32S1ZZ Computerized Tomography (CT Scan) of Right Pulmonary Artery using Low Osmolar Contrast (ICD-10-PCS; 2020-02-07)
PROC: 02580ZZ Destruction of Conduction Mechanism, Open Approach (ICD-10-PCS; 2020-02-08)
PROC: 02Q50ZZ Repair Atrial Septum, Open Approach (ICD-10-PCS; 2020-02-08)
PROC: 02L70CK Occlusion of Left Atrial Appendage with Extraluminal Device, Open Approach (ICD-10-PCS; 2020-02-08)
PROC: B246ZZZ Ultrasonography of Right and Left Heart (ICD-10-PCS; 2020-02-08)
PROC: 02HV33Z Insertion of Infusion Device into Superior Vena Cava, Percutaneous Approach (ICD-10-PCS; 2020-02-08)
PROC: 02UG08Z Supplement Mitral Valve with Zooplastic Tissue, Open Approach (ICD-10-PCS; principal; 2020-02-08 06:51)
DX: I34.0 Nonrheumatic mitral (valve) insufficiency (principal); I21.4 Non-ST elevation (NSTEMI) myocardial infarction; I50.31 Acute diastolic (congestive) heart failure; I48.19 Other persistent atrial fibrillation; Q21.1 Atrial septal defect; J44.9 Chronic obstructive pulmonary disease, unspecified; I27.20 Pulmonary hypertension, unspecified; E66.9 Obesity, unspecified; E78.5 Hyperlipidemia, unspecified; I11.0 Hypertensive heart disease with heart failure; I77.819 Aortic ectasia, unspecified site; I25.10 Atherosclerotic heart disease of native coronary artery without angina pectoris; I25.2 Old myocardial infarction; Z86.73 Personal history of transient ischemic attack (TIA), and cerebral infarction without residual deficits; Z79.899 Other long term (current) drug therapy; Z79.01 Long term (current) use of anticoagulants; Z79.1 Long term (current) use of non-steroidal anti-inflammatories (NSAID); Z98.52 Vasectomy status; Z68.30 Body mass index [BMI] 30.0-30.9, adult
CPT/HCPCS: 0232T; 93312; 93325; 36415; 36600; 71045; 71275; 80048; 80053; 81003; 82330; 82435; 82803; 82947; 82948; 83036; 83735; 84100; 84132; 84295; 84484; 85018; 85025; 85347; 85384; 85610; 85730; 86885; 86900; 86901; 86920; 87081; 93005; 93880; 94002; 94010; 94668; 94760; 97116; 97161; 97530; A4618; A6258; A6449; A7000; A7048; C1713; C1751; C2618; C9113; G0378; J0690; J1644; J1815; J1940; J2060; J2150; J2250; J2270; J2370; J2704; J2720; J2930; J3370; J3475; J3480; J3490; J7030; J7040; J7050; J7120; P9047; Q9967